=== PATIENT | female | born 1965 | race Caucasian/White ===

== ENCOUNTER 2020-08-18 21:07 | Inpatient (IN) ==
[2020-08-18] MEDS ORDERED: Naloxone 0.4 MG/ML INJ IVP PRN (22:57)
[2020-08-18] MEDS ORDERED: *HR* Dextrose 50 % in Water (Vial) 50 ML VIAL IVP PRN (23:08)
[2020-08-18] MEDS ORDERED: D5% in Water 1,000 ML IVC PRN (23:08)
[2020-08-18] MEDS ORDERED: Dextrose Gel 15 GM/37.5 ML TUBE PO PRN ×2 (23:08)
[2020-08-18] MEDS: *HR* Heparin 5,000 UNIT/ML VIAL SQ SCH (23:49)
[2020-08-19] MEDS ORDERED: Melatonin 3 MG TABLET PO ONE (00:23)
[2020-08-19 00:49] LABS: Basophils % 0.3 %; Hematocrit 37.2 % (35.3-44.9); Hemoglobin 12.6 g/dL (11.5-15.4); Immature Granulocytes % 1.2 % (0-4); Lymphocytes # 0.7 K/mcL (0.6-4.6); Lymphocytes % 21.5 %; Mean Corpuscular HGB Conc 33.9 g/dL (31.6-35.5); Mean Corpuscular Hemoglobin 29.4 pg (28.0-33.3); Mean Corpuscular Volume 86.7 fL (83.0-100.0); Mean Platelet Volume 10.2 fL (9.4-12.4); Monocytes # 0.1 K/mcL (0.0-1.3); Monocytes % 2.8 %; Platelet Count 137 K/mcL (140-400); Red Blood Count 4.29 M/mcL (3.82-4.97); Red Cell Distribution Width 14.8 % (11.5-14.5); Segmented Neutrophils % 74.2 %; White Blood Count 3.3 K/mcL (4.3-11.1)
[2020-08-19 00:55] LABS: INR 1.2; Prothrombin Time 13.3 Seconds (9.4-12.1)
[2020-08-19 00:57] LABS: Activated Partial Thrombo Time 25.8 Seconds (26.0-36.0)
[2020-08-19 00:58] LABS: Neutrophils # 2.5 K/mcL (1.6-8.9)
[2020-08-19 01:10] LABS: Alanine Aminotransferase 23 Units/L (7-52); Albumin 3.6 g/dL (3.5-5.7); Alkaline Phosphatase 75 Units/L (34-104); Aspartate Amino Transferase 29 Units/L (13-39); BUN/Creatinine Ratio 19 (6-26); Bilirubin,Total 0.4 mg/dL (0.3-1.0); Blood Urea Nitrogen 14 mg/dL (6-20); C-Reactive Protein 60 mg/L (Less than 10); Carbon Dioxide 14 mEq/L (23-29); Chloride 96 mEq/L (98-107); Globulin 3.7 g/dL (2.4-3.5); Glucose 376 mg/dL (70-105); Lactate Dehydrogenase 270 Units/L (140-271); Osmolality,Calculated 282 (280-300); Potassium 4.2 mEq/L (3.5-5.1); Sodium 128 mEq/L (136-145); Total Protein 7.3 g/dL (6.4-8.9); Troponin I < 0.03 ng/mL (< 0.04); eGFR For African Americans > 60 (> 60); eGFR For Non-African Americans > 60 (> 60)
[2020-08-19 01:12] LABS: Reactive Lymphocytes Present (Not Present); Toxic Granulation Present (Not Present)
[2020-08-19 01:28] LABS: Ferritin 562 ng/mL (10-120)
[2020-08-19] MEDS ORDERED: Insulin LISPRO 300 UNITS/3 ML VIAL SUBQ SCH ×2 (04:00)
[2020-08-19] MEDS ORDERED: Insulin LISPRO 300 UNITS/3 ML VIAL SUBQ PRN (05:17)
[2020-08-19] MEDS ORDERED: Insulin Human Regular 100 UNIT in 0.9 % Sodium Chloride 100 ML IVC SCH ×2 (05:30→08:45)
[2020-08-19 06:57] LABS: BUN/Creatinine Ratio 18 (6-26); Blood Urea Nitrogen 16 mg/dL (6-20); Calcium 8.4 mg/dL (8.6-10.3); Carbon Dioxide 15 mEq/L (23-29); Chloride 94 mEq/L (98-107); Glucose 355 mg/dL (70-105); Osmolality,Calculated 281 (280-300); Potassium 4.1 mEq/L (3.5-5.1); Sodium 128 mEq/L (136-145); eGFR For African Americans > 60 (> 60); eGFR For Non-African Americans > 60 (> 60)
[2020-08-19] MEDS ORDERED: 0.9 % Sodium Chloride 1,000 ML IVC SCH (08:45)
[2020-08-19] MEDS ORDERED: Insulin Regular, Human 100 UNIT/ML IV PRN ×4 (08:45→09:25)
[2020-08-19] MEDS ORDERED: 0.45 % Sodium Chloride w/KCl 20 MEQ/1,000 ML MLS IVC SCH (08:45)
[2020-08-19] MEDS ORDERED: D5% in 0.45% NACL w KCl 20 MEQ/1,000 ML MLS IVC PRN ×2 (08:45→09:25)
[2020-08-19] MEDS ORDERED: D5% in 0.45% NACL 1,000 ML IVC PRN (08:45)
[2020-08-19 09:03] LABS: VBG HCO3 17 mEq/L (21-27); VBG PCO2 34 mmHg (41-51); VBG PO2 88 mmHg (25-50)
[2020-08-19] MEDS ORDERED: *HR* Dextrose 50 % in Water (Vial) 50 ML VIAL IVP PRN (09:25)
[2020-08-19] MEDS ORDERED: 0.9 % Sodium Chloride w KCl 20 MEQ/1,000 ML MLS IVC SCH (09:30)
[2020-08-19] MEDS: *HR* Heparin 5,000 UNIT/ML VIAL SQ SCH ×2 (09:33→16:05)
[2020-08-19 09:40] LABS: BUN/Creatinine Ratio 20 (6-26); Blood Urea Nitrogen 16 mg/dL (6-20); Calcium 8.7 mg/dL (8.6-10.3); Carbon Dioxide 15 mEq/L (23-29); Chloride 98 mEq/L (98-107); Glucose 259 mg/dL (70-105); Osmolality,Calculated 278 (280-300); Potassium 3.2 mEq/L (3.5-5.1); Sodium 129 mEq/L (136-145); eGFR For African Americans > 60 (> 60); eGFR For Non-African Americans > 60 (> 60)
[2020-08-19] MEDS: Insulin Human Regular 100 UNIT in 0.9 % Sodium Chloride 100 ML IVC SCH ×2 (11:00→16:06)
[2020-08-19 12:27] LABS: VBG HCO3 20 mEq/L (21-27); VBG PCO2 41 mmHg (41-51); VBG PO2 134 mmHg (25-50)
[2020-08-19 13:02] LABS: BUN/Creatinine Ratio 19 (6-26); Blood Urea Nitrogen 16 mg/dL (6-20); Calcium 9.3 mg/dL (8.6-10.3); Carbon Dioxide 14 mEq/L (23-29); Chloride 99 mEq/L (98-107); Glucose 114 mg/dL (70-105); Osmolality,Calculated 272 (280-300); Potassium 3.4 mEq/L (3.5-5.1); Sodium 130 mEq/L (136-145); eGFR For African Americans > 60 (> 60); eGFR For Non-African Americans > 60 (> 60)
[2020-08-19] MEDS ORDERED: 0.9 % Sodium Chloride 500 ML IVC ONE (15:22)
[2020-08-19 16:12] LABS: BUN/Creatinine Ratio 21 (6-26); Blood Urea Nitrogen 15 mg/dL (6-20); Calcium 8.9 mg/dL (8.6-10.3); Carbon Dioxide 18 mEq/L (23-29); Chloride 103 mEq/L (98-107); Glucose 94 mg/dL (70-105); Osmolality,Calculated 275 (280-300); Potassium 3.4 mEq/L (3.5-5.1); Sodium 132 mEq/L (136-145); eGFR For African Americans > 60 (> 60); eGFR For Non-African Americans > 60 (> 60)
[2020-08-19 21:40] LABS: BUN/Creatinine Ratio 22 (6-26); Blood Urea Nitrogen 14 mg/dL (6-20); Calcium 8.1 mg/dL (8.6-10.3); Carbon Dioxide 20 mEq/L (23-29); Chloride 102 mEq/L (98-107); Glucose 225 mg/dL (70-105); Osmolality,Calculated 280 (280-300); Potassium 4.1 mEq/L (3.5-5.1); Sodium 131 mEq/L (136-145); eGFR For African Americans > 60 (> 60); eGFR For Non-African Americans > 60 (> 60)
[2020-08-19] MEDS: Insulin DETEMIR 100 UNIT/ML X5UNITS SUBQ SCH (22:30)
[2020-08-20] MEDS: *HR* Heparin 5,000 UNIT/ML VIAL SQ SCH ×2 (01:00→08:49)
[2020-08-20] MEDS: Insulin LISPRO 300 UNITS/3 ML VIAL SUBQ SCH ×5 (01:49→22:01)
[2020-08-20 02:20] LABS: Hematocrit 35.8 % (35.3-44.9); Mean Corpuscular HGB Conc 33.5 g/dL (31.6-35.5); Mean Corpuscular Hemoglobin 29.5 pg (28.0-33.3); Mean Platelet Volume 10.6 fL (9.4-12.4); Platelet Count 178 K/mcL (140-400); Red Blood Count 4.07 M/mcL (3.82-4.97); Red Cell Distribution Width 14.8 % (11.5-14.5)
[2020-08-20] MEDS ORDERED: ALPRAZolam 0.5 MG TABLET PO PRN (02:20)
[2020-08-20 02:26] LABS: White Blood Count 8.1 K/mcL (4.3-11.1)
[2020-08-20 02:30] LABS: Fibrinogen 439 mg/dL (169-393)
[2020-08-20 02:33] LABS: Alanine Aminotransferase 18 Units/L (7-52); Albumin 3.4 g/dL (3.5-5.7); Alkaline Phosphatase 68 Units/L (34-104); Aspartate Amino Transferase 22 Units/L (13-39); BUN/Creatinine Ratio 22 (6-26); Bilirubin,Direct 0.1 mg/dL (0.0-0.2); Bilirubin,Indirect 0.3 mg/dL (0.0-1.0); Bilirubin,Total 0.4 mg/dL (0.3-1.0); Blood Urea Nitrogen 14 mg/dL (6-20); C-Reactive Protein 29 mg/L (Less than 10); Calcium 8.3 mg/dL (8.6-10.3); Carbon Dioxide 19 mEq/L (23-29); Chloride 103 mEq/L (98-107); Globulin 3.3 g/dL (2.4-3.5); Glucose 201 mg/dL (70-105); Osmolality,Calculated 282 (280-300); Potassium 3.6 mEq/L (3.5-5.1); Sodium 133 mEq/L (136-145); Total Protein 6.7 g/dL (6.4-8.9); eGFR For African Americans > 60 (> 60); eGFR For Non-African Americans > 60 (> 60)
[2020-08-20 02:34] LABS: BUN/Creatinine Ratio 22 (6-26); Blood Urea Nitrogen 14 mg/dL (6-20); Calcium 8.2 mg/dL (8.6-10.3); Carbon Dioxide 19 mEq/L (23-29); Chloride 103 mEq/L (98-107); Glucose 202 mg/dL (70-105); Osmolality,Calculated 282 (280-300); Potassium 3.6 mEq/L (3.5-5.1); Sodium 133 mEq/L (136-145); eGFR For African Americans > 60 (> 60); eGFR For Non-African Americans > 60 (> 60)
[2020-08-20 02:36] LABS: D-Dimer 245 ng/mLFEU (0-500)
[2020-08-20 02:49] LABS: Neutrophils # 7.1 K/mcL (1.6-8.9); Platelet Estimate Normal (Normal)
[2020-08-20] MEDS ORDERED: Ondansetron ODT 4 MG TAB.RAPDIS SL PRN (07:29)
[2020-08-20] MEDS: Metoprolol XL (24 HR) Succ 50 MG TAB.ER.24H PO SCH (08:49)
[2020-08-20] MEDS: amLODIPine 5 MG TABLET PO SCH (08:49)
[2020-08-20] MEDS: Dexamethasone Sodium Phos/PF 10 MG/ML VIAL IVP SCH (08:53)
[2020-08-20] MEDS ORDERED: NON-FORMULARY MEDICATION 1 EACH EACH (Omega-3/Dha/Epa/Fish Oil [Fish Oil 1,000 Mg Softgel] PO SCH (09:00)
[2020-08-20] MEDS ORDERED: Remdesivir 200 MG in 0.9 % Sodium Chloride 100 ML IVPB ONE (16:00)
[2020-08-20 18:05] LABS: BUN/Creatinine Ratio 19 (6-26); Blood Urea Nitrogen 14 mg/dL (6-20); Calcium 8.3 mg/dL (8.6-10.3); Carbon Dioxide 20 mEq/L (23-29); Chloride 103 mEq/L (98-107); Glucose 370 mg/dL (70-105); Osmolality,Calculated 294 (280-300); Potassium 4.1 mEq/L (3.5-5.1); Sodium 134 mEq/L (136-145); eGFR For African Americans > 60 (> 60); eGFR For Non-African Americans > 60 (> 60)
[2020-08-20] MEDS: Insulin DETEMIR 100 UNIT/ML X5UNITS SUBQ SCH (21:44)
[2020-08-21 05:57] LABS: Basophils % 0.2 %; Hematocrit 34.4 % (35.3-44.9); Hemoglobin 11.2 g/dL (11.5-15.4); Immature Granulocytes % 2.5 % (0-4); Mean Corpuscular HGB Conc 32.6 g/dL (31.6-35.5); Mean Corpuscular Hemoglobin 28.4 pg (28.0-33.3); Mean Corpuscular Volume 87.1 fL (83.0-100.0); Mean Platelet Volume 10.3 fL (9.4-12.4); Monocytes # 0.5 K/mcL (0.0-1.3); Monocytes % 4.8 %; Neutrophils # 8.1 K/mcL (1.6-8.9); Platelet Count 216 K/mcL (140-400); Red Blood Count 3.95 M/mcL (3.82-4.97); Red Cell Distribution Width 14.9 % (11.5-14.5); Segmented Neutrophils % 82.5 %; White Blood Count 9.8 K/mcL (4.3-11.1)
[2020-08-21 05:59] LABS: INR 1.1; Prothrombin Time 12.9 Seconds (9.4-12.1)
[2020-08-21] MEDS: *HR* Enoxaparin 40 MG/0.4 ML SYRINGE SQ SCH (06:13)
[2020-08-21 06:16] LABS: BUN/Creatinine Ratio 22 (6-26); Blood Urea Nitrogen 14 mg/dL (6-20); Calcium 8.1 mg/dL (8.6-10.3); Carbon Dioxide 23 mEq/L (23-29); Chloride 104 mEq/L (98-107); Glucose 242 mg/dL (70-105); Osmolality,Calculated 288 (280-300); Potassium 3.8 mEq/L (3.5-5.1); Sodium 135 mEq/L (136-145); eGFR For African Americans > 60 (> 60); eGFR For Non-African Americans > 60 (> 60)
[2020-08-21 06:18] LABS: Alanine Aminotransferase 14 Units/L (7-52); Albumin 3.1 g/dL (3.5-5.7); Alkaline Phosphatase 68 Units/L (34-104); Aspartate Amino Transferase 18 Units/L (13-39); BUN/Creatinine Ratio 22 (6-26); Bilirubin,Total 0.4 mg/dL (0.3-1.0); Blood Urea Nitrogen 14 mg/dL (6-20); Calcium 8.1 mg/dL (8.6-10.3); Carbon Dioxide 23 mEq/L (23-29); Chloride 104 mEq/L (98-107); Globulin 3.2 g/dL (2.4-3.5); Glucose 240 mg/dL (70-105); Osmolality,Calculated 288 (280-300); Potassium 3.9 mEq/L (3.5-5.1); Sodium 135 mEq/L (136-145); Total Protein 6.3 g/dL (6.4-8.9); eGFR For African Americans > 60 (> 60); eGFR For Non-African Americans > 60 (> 60)
[2020-08-21 06:23] LABS: Platelet Estimate Normal (Normal); Reactive Lymphocytes Present (Not Present)
[2020-08-21 08:24] LABS: C-Reactive Protein 13 mg/L (Less than 10)
[2020-08-21] MEDS: Dexamethasone Sodium Phos/PF 10 MG/ML VIAL IVP SCH (09:03)
[2020-08-21] MEDS: amLODIPine 5 MG TABLET PO SCH (09:03)
[2020-08-21] MEDS: Metoprolol XL (24 HR) Succ 50 MG TAB.ER.24H PO SCH (09:03)
[2020-08-21] MEDS: Cholecalciferol (D-3) 1,000 UNIT (25MCG) TABLET PO SCH (09:04)
[2020-08-21] MEDS: Aspirin 81 MG TAB.CHEW PO SCH (09:04)
[2020-08-21] MEDS: Insulin LISPRO 300 UNITS/3 ML VIAL SUBQ SCH ×4 (09:05→20:42)
[2020-08-21] MEDS: Remdesivir 100 MG in 0.9 % Sodium Chloride 100 ML IVPB SCH (16:43)
[2020-08-21] MEDS: Insulin DETEMIR 100 UNIT/ML X5UNITS SUBQ SCH (20:42)
[2020-08-22] MEDS: *HR* Enoxaparin 40 MG/0.4 ML SYRINGE SQ SCH (06:07)
[2020-08-22] MEDS: Cholecalciferol (D-3) 1,000 UNIT (25MCG) TABLET PO SCH (08:38)
[2020-08-22] MEDS: Dexamethasone Sodium Phos/PF 10 MG/ML VIAL IVP SCH (08:38)
[2020-08-22] MEDS: Insulin LISPRO 300 UNITS/3 ML VIAL SUBQ SCH ×4 (08:39→20:17)
[2020-08-22] MEDS: amLODIPine 5 MG TABLET PO SCH (08:39)
[2020-08-22] MEDS: Metoprolol XL (24 HR) Succ 50 MG TAB.ER.24H PO SCH (08:39)
[2020-08-22] MEDS: Aspirin 81 MG TAB.CHEW PO SCH (08:39)
[2020-08-22] MEDS: Remdesivir 100 MG in 0.9 % Sodium Chloride 100 ML IVPB SCH (17:28)
[2020-08-22] MEDS: Insulin DETEMIR 100 UNIT/ML X5UNITS SUBQ SCH (19:45)
[2020-08-22] MEDS: ALPRAZolam 0.5 MG TABLET PO PRN (19:53)
[2020-08-23] LABS: Basophils % 0.6 %; Hematocrit 35.3 % (35.3-44.9); Hemoglobin 11.6 g/dL (11.5-15.4); Immature Granulocytes % 1.7 % (0-4); Lymphocytes % 14.6 %; Mean Corpuscular HGB Conc 32.9 g/dL (31.6-35.5); Mean Corpuscular Hemoglobin 28.9 pg (28.0-33.3); Mean Corpuscular Volume 87.8 fL (83.0-100.0); Mean Platelet Volume 9.7 fL (9.4-12.4); Monocytes # 0.3 K/mcL (0.0-1.3); Monocytes % 4.8 %; Neutrophils # 5.2 K/mcL (1.6-8.9); Platelet Count 225 K/mcL (140-400); Red Blood Count 4.02 M/mcL (3.82-4.97); Red Cell Distribution Width 14.4 % (11.5-14.5); Segmented Neutrophils % 78.3 %; White Blood Count 6.6 K/mcL (4.3-11.1)
[2020-08-23 00:14] LABS: Fibrinogen 326 mg/dL (169-393)
[2020-08-23 00:15] LABS: INR 1.2
[2020-08-23 00:20] LABS: BUN/Creatinine Ratio 27 (6-26); Blood Urea Nitrogen 17 mg/dL (6-20); C-Reactive Protein < 5 mg/L (Less than 10); Calcium 8.4 mg/dL (8.6-10.3); Carbon Dioxide 20 mEq/L (23-29); Chloride 101 mEq/L (98-107); Glucose 247 mg/dL (70-105); Osmolality,Calculated 284 (280-300); Potassium 3.4 mEq/L (3.5-5.1); Sodium 132 mEq/L (136-145); eGFR For African Americans > 60 (> 60); eGFR For Non-African Americans > 60 (> 60)
[2020-08-23 00:22] LABS: Alanine Aminotransferase 16 Units/L (7-52); Albumin 3.1 g/dL (3.5-5.7); Alkaline Phosphatase 71 Units/L (34-104); Aspartate Amino Transferase 15 Units/L (13-39); BUN/Creatinine Ratio 27 (6-26); Bilirubin,Total 0.4 mg/dL (0.3-1.0); Blood Urea Nitrogen 17 mg/dL (6-20); Calcium 8.4 mg/dL (8.6-10.3); Carbon Dioxide 21 mEq/L (23-29); Chloride 101 mEq/L (98-107); Globulin 3.1 g/dL (2.4-3.5); Glucose 247 mg/dL (70-105); Osmolality,Calculated 286 (280-300); Potassium 3.4 mEq/L (3.5-5.1); Sodium 133 mEq/L (136-145); Total Protein 6.2 g/dL (6.4-8.9); eGFR For African Americans > 60 (> 60); eGFR For Non-African Americans > 60 (> 60)
[2020-08-23 00:24] LABS: D-Dimer 272 ng/mLFEU (0-500)
[2020-08-23 00:39] LABS: Platelet Estimate Normal (Normal); Toxic Granulation Present (Not Present)
[2020-08-23 00:40] LABS: Reactive Lymphocytes Present (Not Present)
[2020-08-23] MEDS: *HR* Enoxaparin 40 MG/0.4 ML SYRINGE SQ SCH (05:11)
[2020-08-23] MEDS: Insulin LISPRO 300 UNITS/3 ML VIAL SUBQ SCH ×4 (08:52→19:26)
[2020-08-23] MEDS: Metoprolol XL (24 HR) Succ 50 MG TAB.ER.24H PO SCH (08:53)
[2020-08-23] MEDS: Aspirin 81 MG TAB.CHEW PO SCH (08:53)
[2020-08-23] MEDS: Dexamethasone Sodium Phos/PF 10 MG/ML VIAL IVP SCH (08:54)
[2020-08-23] MEDS: amLODIPine 5 MG TABLET PO SCH (08:54)
[2020-08-23] MEDS: Cholecalciferol (D-3) 1,000 UNIT (25MCG) TABLET PO SCH (08:54)
[2020-08-23] MEDS: Remdesivir 100 MG in 0.9 % Sodium Chloride 100 ML IVPB SCH (15:07)
[2020-08-23] MEDS ORDERED: Furosemide 40 MG/4 ML VIAL IVP ONE (15:24)
[2020-08-23] MEDS: Insulin DETEMIR 100 UNIT/ML X5UNITS SUBQ SCH (19:26)
[2020-08-23] MEDS: ALPRAZolam 0.5 MG TABLET PO PRN (21:25)
[2020-08-24 04:36] LABS: Basophils % 0.6 %; Eosinophils % 0.2 %; Hematocrit 36.6 % (35.3-44.9); Hemoglobin 12.1 g/dL (11.5-15.4); Immature Granulocytes % 2.4 % (0-4); Lymphocytes # 1.3 K/mcL (0.6-4.6); Lymphocytes % 23.8 %; Mean Corpuscular HGB Conc 33.1 g/dL (31.6-35.5); Mean Corpuscular Hemoglobin 28.6 pg (28.0-33.3); Mean Corpuscular Volume 86.5 fL (83.0-100.0); Mean Platelet Volume 9.4 fL (9.4-12.4); Monocytes # 0.4 K/mcL (0.0-1.3); Monocytes % 7.8 %; Neutrophils # 3.5 K/mcL (1.6-8.9); Platelet Count 224 K/mcL (140-400); Red Blood Count 4.23 M/mcL (3.82-4.97); Red Cell Distribution Width 14.3 % (11.5-14.5); Segmented Neutrophils % 65.2 %; White Blood Count 5.4 K/mcL (4.3-11.1)
[2020-08-24 04:41] LABS: Fibrinogen 341 mg/dL (169-393)
[2020-08-24 04:42] LABS: INR 1.2; Prothrombin Time 13.7 Seconds (9.4-12.1)
[2020-08-24 04:45] LABS: D-Dimer 269 ng/mLFEU (0-500)
[2020-08-24 04:55] LABS: Alanine Aminotransferase 17 Units/L (7-52); Albumin 3.2 g/dL (3.5-5.7); Alkaline Phosphatase 70 Units/L (34-104); Aspartate Amino Transferase 17 Units/L (13-39); BUN/Creatinine Ratio 32 (6-26); Bilirubin,Total 0.4 mg/dL (0.3-1.0); Blood Urea Nitrogen 21 mg/dL (6-20); Calcium 8.2 mg/dL (8.6-10.3); Carbon Dioxide 22 mEq/L (23-29); Chloride 99 mEq/L (98-107); Globulin 3.1 g/dL (2.4-3.5); Glucose 207 mg/dL (70-105); Osmolality,Calculated 283 (280-300); Potassium 3.7 mEq/L (3.5-5.1); Sodium 132 mEq/L (136-145); Total Protein 6.3 g/dL (6.4-8.9); eGFR For African Americans > 60 (> 60); eGFR For Non-African Americans > 60 (> 60)
[2020-08-24 04:56] LABS: BUN/Creatinine Ratio 33 (6-26); Blood Urea Nitrogen 21 mg/dL (6-20); C-Reactive Protein 9 mg/L (Less than 10); Calcium 8.2 mg/dL (8.6-10.3); Carbon Dioxide 22 mEq/L (23-29); Chloride 100 mEq/L (98-107); Glucose 208 mg/dL (70-105); Osmolality,Calculated 285 (280-300); Potassium 3.8 mEq/L (3.5-5.1); Sodium 133 mEq/L (136-145); eGFR For African Americans > 60 (> 60); eGFR For Non-African Americans > 60 (> 60)
[2020-08-24] MEDS: *HR* Enoxaparin 40 MG/0.4 ML SYRINGE SQ SCH (05:05)
[2020-08-24 06:00] LABS: Estimated Average Glucose 381 mg/dl; Hemoglobin A1C 14.9 %
[2020-08-24] MEDS ORDERED: Insulin DETEMIR 100 UNIT/ML X5UNITS SUBQ ONE (07:37)
[2020-08-24] MEDS: Metoprolol XL (24 HR) Succ 50 MG TAB.ER.24H PO SCH (09:19)
[2020-08-24] MEDS: Cholecalciferol (D-3) 1,000 UNIT (25MCG) TABLET PO SCH (09:20)
[2020-08-24] MEDS: Dexamethasone Sodium Phos/PF 10 MG/ML VIAL IVP SCH (09:20)
[2020-08-24] MEDS: Aspirin 81 MG TAB.CHEW PO SCH (09:20)
[2020-08-24] MEDS: amLODIPine 5 MG TABLET PO SCH (09:20)
[2020-08-24] MEDS: Insulin LISPRO 300 UNITS/3 ML VIAL SUBQ SCH ×4 (09:21→21:16)
[2020-08-24] MEDS: Acetaminophen 325 MG TABLET PO PRN ×2 (09:23→19:58)
[2020-08-24] MEDS ORDERED: Sennosides/Docusate Sodium TABLET PO ONE (13:19)
[2020-08-24] MEDS: Remdesivir 100 MG in 0.9 % Sodium Chloride 100 ML IVPB SCH (16:08)
[2020-08-24] MEDS: ALPRAZolam 0.5 MG TABLET PO PRN (19:58)
[2020-08-24] MEDS: Insulin DETEMIR 100 UNIT/ML X5UNITS SUBQ SCH (21:17)
[2020-08-25 04:21] LABS: Basophils % 0.4 %; Eosinophils % 0.4 %; Hematocrit 36.8 % (35.3-44.9); Hemoglobin 12.2 g/dL (11.5-15.4); Immature Granulocytes % 3.8 % (0-4); Lymphocytes # 1.1 K/mcL (0.6-4.6); Mean Corpuscular HGB Conc 33.2 g/dL (31.6-35.5); Mean Corpuscular Hemoglobin 29.4 pg (28.0-33.3); Mean Corpuscular Volume 88.7 fL (83.0-100.0); Mean Platelet Volume 9.8 fL (9.4-12.4); Monocytes # 0.5 K/mcL (0.0-1.3); Monocytes % 8.8 %; Neutrophils # 3.5 K/mcL (1.6-8.9); Platelet Count 209 K/mcL (140-400); Red Blood Count 4.15 M/mcL (3.82-4.97); Red Cell Distribution Width 14.4 % (11.5-14.5); Segmented Neutrophils % 65.6 %; White Blood Count 5.3 K/mcL (4.3-11.1)
[2020-08-25 04:30] LABS: INR 1.1; Prothrombin Time 13.1 Seconds (9.4-12.1)
[2020-08-25 04:40] LABS: Alanine Aminotransferase 17 Units/L (7-52); Albumin 3.1 g/dL (3.5-5.7); Alkaline Phosphatase 66 Units/L (34-104); Aspartate Amino Transferase 15 Units/L (13-39); BUN/Creatinine Ratio 29 (6-26); Bilirubin,Total 0.4 mg/dL (0.3-1.0); Blood Urea Nitrogen 21 mg/dL (6-20); C-Reactive Protein 9 mg/L (Less than 10); Calcium 8.4 mg/dL (8.6-10.3); Carbon Dioxide 23 mEq/L (23-29); Chloride 100 mEq/L (98-107); Globulin 3.1 g/dL (2.4-3.5); Glucose 231 mg/dL (70-105); Osmolality,Calculated 284 (280-300); Potassium 4.4 mEq/L (3.5-5.1); Sodium 132 mEq/L (136-145); Total Protein 6.2 g/dL (6.4-8.9); eGFR For African Americans > 60 (> 60); eGFR For Non-African Americans > 60 (> 60)
[2020-08-25] MEDS: *HR* Enoxaparin 40 MG/0.4 ML SYRINGE SQ SCH (05:20)
[2020-08-25] MEDS: Acetaminophen 325 MG TABLET PO PRN (05:20)
[2020-08-25] MEDS: amLODIPine 5 MG TABLET PO SCH (08:09)
[2020-08-25] MEDS: Cholecalciferol (D-3) 1,000 UNIT (25MCG) TABLET PO SCH (08:09)
[2020-08-25] MEDS: Metoprolol XL (24 HR) Succ 50 MG TAB.ER.24H PO SCH (08:09)
[2020-08-25] MEDS: Aspirin 81 MG TAB.CHEW PO SCH (08:10)
[2020-08-25] MEDS: Dexamethasone Sodium Phos/PF 10 MG/ML VIAL IVP SCH (08:10)
[2020-08-25] MEDS: Sennosides/Docusate Sodium TABLET PO SCH (08:10)
[2020-08-25] MEDS: Insulin LISPRO 300 UNITS/3 ML VIAL SUBQ SCH ×5 (08:10→20:12)
[2020-08-25] MEDS: ALPRAZolam 0.5 MG TABLET PO PRN (19:35)
[2020-08-25] MEDS: Insulin DETEMIR 100 UNIT/ML X5UNITS SUBQ SCH (20:12)
[2020-08-26] MEDS: *HR* Enoxaparin 40 MG/0.4 ML SYRINGE SQ SCH (04:48)
[2020-08-26] MEDS: Insulin LISPRO 300 UNITS/3 ML VIAL SUBQ SCH ×4 (08:43→21:24)
[2020-08-26] MEDS: Dexamethasone Sodium Phos/PF 10 MG/ML VIAL IVP SCH (09:37)
[2020-08-26] MEDS: Cholecalciferol (D-3) 1,000 UNIT (25MCG) TABLET PO SCH (09:38)
[2020-08-26] MEDS: Metoprolol XL (24 HR) Succ 50 MG TAB.ER.24H PO SCH (09:38)
[2020-08-26] MEDS: amLODIPine 5 MG TABLET PO SCH (09:39)
[2020-08-26] MEDS: Sennosides/Docusate Sodium TABLET PO SCH (09:39)
[2020-08-26] MEDS: Aspirin 81 MG TAB.CHEW PO SCH (09:39)
[2020-08-26] MEDS: ALPRAZolam 0.5 MG TABLET PO PRN (19:12)
[2020-08-26] MEDS: Insulin DETEMIR 100 UNIT/ML X5UNITS SUBQ SCH (21:24)
[2020-08-27] MEDS: *HR* Enoxaparin 40 MG/0.4 ML SYRINGE SQ SCH (05:04)
[2020-08-27] MEDS: Insulin LISPRO 300 UNITS/3 ML VIAL SUBQ SCH ×6 (07:59→20:20)
[2020-08-27] MEDS: Cholecalciferol (D-3) 1,000 UNIT (25MCG) TABLET PO SCH (08:00)
[2020-08-27] MEDS: Aspirin 81 MG TAB.CHEW PO SCH (08:00)
[2020-08-27] MEDS: Dexamethasone Sodium Phos/PF 10 MG/ML VIAL IVP SCH (08:01)
[2020-08-27] MEDS: amLODIPine 5 MG TABLET PO SCH (08:01)
[2020-08-27] MEDS: Sennosides/Docusate Sodium TABLET PO SCH (08:01)
[2020-08-27] MEDS: Metoprolol XL (24 HR) Succ 50 MG TAB.ER.24H PO SCH (08:01)
[2020-08-27] MEDS: Insulin DETEMIR 100 UNIT/ML X5UNITS SUBQ SCH ×2 (12:25→20:21)
[2020-08-27] MEDS: ALPRAZolam 0.5 MG TABLET PO PRN (20:26)
[2020-08-28] MEDS: *HR* Enoxaparin 40 MG/0.4 ML SYRINGE SQ SCH (05:25)
[2020-08-28 07:16] LABS: Alanine Aminotransferase 15 Units/L (7-52); Albumin 3.3 g/dL (3.5-5.7); Albumin/Globulin Ratio 1.1 (1.1-2.2); Alkaline Phosphatase 72 Units/L (34-104); Aspartate Amino Transferase 13 Units/L (13-39); BUN/Creatinine Ratio 33 (6-26); Bilirubin,Total 0.3 mg/dL (0.3-1.0); Blood Urea Nitrogen 26 mg/dL (6-20); Calcium 8.7 mg/dL (8.6-10.3); Carbon Dioxide 20 mEq/L (23-29); Chloride 100 mEq/L (98-107); Globulin 3.1 g/dL (2.4-3.5); Glucose 190 mg/dL (70-105); Magnesium 1.8 mg/dL (1.6-2.6); Osmolality,Calculated 282 (280-300); Phosphorous 3.5 mg/dL (2.7-4.5); Potassium 3.8 mEq/L (3.5-5.1); Sodium 131 mEq/L (136-145); Total Protein 6.4 g/dL (6.4-8.9); eGFR For African Americans > 60 (> 60); eGFR For Non-African Americans > 60 (> 60)
[2020-08-28] MEDS: Sennosides/Docusate Sodium TABLET PO SCH (08:06)
[2020-08-28] MEDS: Insulin DETEMIR 100 UNIT/ML X5UNITS SUBQ SCH ×2 (08:06→21:30)
[2020-08-28] MEDS: Cholecalciferol (D-3) 1,000 UNIT (25MCG) TABLET PO SCH (08:06)
[2020-08-28] MEDS: Metoprolol XL (24 HR) Succ 50 MG TAB.ER.24H PO SCH (08:06)
[2020-08-28] MEDS: Aspirin 81 MG TAB.CHEW PO SCH (08:07)
[2020-08-28] MEDS: amLODIPine 5 MG TABLET PO SCH (08:07)
[2020-08-28] MEDS: Furosemide 20 MG/2 ML VIAL IVP SCH (08:08)
[2020-08-28] MEDS: Insulin LISPRO 300 UNITS/3 ML VIAL SUBQ SCH ×7 (08:08→21:30)
[2020-08-28] MEDS: Dexamethasone Sodium Phos/PF 10 MG/ML VIAL IVP SCH (08:08)
[2020-08-28] MEDS: ALPRAZolam 0.5 MG TABLET PO PRN (21:30)
[2020-08-29] MEDS: *HR* Enoxaparin 40 MG/0.4 ML SYRINGE SQ SCH (05:24)
[2020-08-29 07:49] LABS: Basophils % 0.3 %; Eosinophils % 0.2 %; Hematocrit 38.8 % (35.3-44.9); Hemoglobin 12.8 g/dL (11.5-15.4); Immature Granulocytes % 2.3 % (0-4); Lymphocytes # 1.3 K/mcL (0.6-4.6); Lymphocytes % 13.9 %; Mean Corpuscular Hemoglobin 29.1 pg (28.0-33.3); Mean Corpuscular Volume 88.2 fL (83.0-100.0); Mean Platelet Volume 10.7 fL (9.4-12.4); Monocytes # 0.4 K/mcL (0.0-1.3); Monocytes % 3.9 %; Neutrophils # 7.2 K/mcL (1.6-8.9); Platelet Count 169 K/mcL (140-400); Red Cell Distribution Width 14.8 % (11.5-14.5); Segmented Neutrophils % 79.4 %
[2020-08-29 07:55] LABS: White Blood Count 9.1 K/mcL (4.3-11.1)
[2020-08-29 08:03] LABS: Fibrinogen 458 mg/dL (169-393)
[2020-08-29 08:04] LABS: D-Dimer < 215 ng/mLFEU (0-500)
[2020-08-29 08:06] LABS: Alanine Aminotransferase 16 Units/L (7-52); Albumin 3.6 g/dL (3.5-5.7); Albumin/Globulin Ratio 1.1 (1.1-2.2); Alkaline Phosphatase 73 Units/L (34-104); Aspartate Amino Transferase 10 Units/L (13-39); BUN/Creatinine Ratio 32 (6-26); Bilirubin,Total 0.3 mg/dL (0.3-1.0); Blood Urea Nitrogen 25 mg/dL (6-20); Carbon Dioxide 25 mEq/L (23-29); Chloride 97 mEq/L (98-107); Globulin 3.4 g/dL (2.4-3.5); Glucose 262 mg/dL (70-105); Lactate Dehydrogenase 277 Units/L (140-271); Magnesium 1.8 mg/dL (1.6-2.6); Osmolality,Calculated 285 (280-300); Phosphorous 3.3 mg/dL (2.7-4.5); Potassium 4.5 mEq/L (3.5-5.1); Sodium 131 mEq/L (136-145); eGFR For African Americans > 60 (> 60); eGFR For Non-African Americans > 60 (> 60)
[2020-08-29 08:23] LABS: Ferritin 431 ng/mL (10-120)
[2020-08-29] MEDS: Cholecalciferol (D-3) 1,000 UNIT (25MCG) TABLET PO SCH (09:20)
[2020-08-29] MEDS: Aspirin 81 MG TAB.CHEW PO SCH (09:21)
[2020-08-29] MEDS: amLODIPine 5 MG TABLET PO SCH (09:21)
[2020-08-29] MEDS: Dexamethasone Sodium Phos/PF 10 MG/ML VIAL IVP SCH (09:21)
[2020-08-29] MEDS: Metoprolol XL (24 HR) Succ 50 MG TAB.ER.24H PO SCH (09:21)
[2020-08-29] MEDS: Sennosides/Docusate Sodium TABLET PO SCH (09:21)
[2020-08-29] MEDS: Furosemide 20 MG/2 ML VIAL IVP SCH (09:22)
[2020-08-29] MEDS: Insulin DETEMIR 100 UNIT/ML X5UNITS SUBQ SCH ×2 (09:24→20:32)
[2020-08-29] MEDS: Insulin LISPRO 300 UNITS/3 ML VIAL SUBQ SCH ×7 (09:24→20:33)
[2020-08-29] MEDS: ALPRAZolam 0.5 MG TABLET PO PRN (20:31)
[2020-08-30 03:05] LABS: BUN/Creatinine Ratio 39 (6-26); Blood Urea Nitrogen 27 mg/dL (6-20); Calcium 8.6 mg/dL (8.6-10.3); Carbon Dioxide 22 mEq/L (23-29); Chloride 98 mEq/L (98-107); Glucose 283 mg/dL (70-105); Magnesium 1.9 mg/dL (1.6-2.6); Osmolality,Calculated 285 (280-300); Potassium 3.9 mEq/L (3.5-5.1); Sodium 130 mEq/L (136-145); eGFR For African Americans > 60 (> 60); eGFR For Non-African Americans > 60 (> 60)
[2020-08-30] MEDS: *HR* Enoxaparin 40 MG/0.4 ML SYRINGE SQ SCH (05:02)
[2020-08-30] MEDS: Sennosides/Docusate Sodium TABLET PO SCH (07:51)
[2020-08-30] MEDS: Cholecalciferol (D-3) 1,000 UNIT (25MCG) TABLET PO SCH (07:52)
[2020-08-30] MEDS: amLODIPine 5 MG TABLET PO SCH (07:52)
[2020-08-30] MEDS: Aspirin 81 MG TAB.CHEW PO SCH (07:52)
[2020-08-30] MEDS: Metoprolol XL (24 HR) Succ 50 MG TAB.ER.24H PO SCH (07:52)
[2020-08-30] MEDS: Furosemide 20 MG/2 ML VIAL IVP SCH (07:52)
[2020-08-30] MEDS: Insulin DETEMIR 100 UNIT/ML X5UNITS SUBQ SCH (07:52)
[2020-08-30] MEDS: Dexamethasone Sodium Phos/PF 10 MG/ML VIAL IVP SCH (07:52)
[2020-08-30] MEDS: Insulin LISPRO 300 UNITS/3 ML VIAL SUBQ SCH ×4 (07:54→11:22)
[2020-08-30] MEDS ORDERED: Insulin DETEMIR 100 UNIT/ML X5UNITS SUBQ SCH (09:00)
[2020-08-30 11:21] VITALS: BP 124/78
== END 2020-08-30 15:28 | disposition home health service (06) | DRG 137 ==
LOC: 2NENU → SUATTDRO 22:22 → OBSVTOIN 22:22
PROVIDERS: ADMIT Student in an Organized Health Care Education/Training Program; ATTEND Internal Medicine

== ENCOUNTER 2020-12-26 21:53 | Inpatient (IN) ==
[2020-12-26] MEDS ORDERED: Naloxone 0.4 MG/ML INJ IVP PRN (22:45)
[2020-12-26] MEDS ORDERED: Dextrose Gel 15 GM/37.5 ML TUBE PO PRN ×2 (22:47)
[2020-12-26] MEDS ORDERED: D5% in Water 1,000 ML IVC PRN (22:47)
[2020-12-26] MEDS ORDERED: *HR* Dextrose 50 % in Water (Vial) 50 ML VIAL IVP PRN (22:47)
[2020-12-26] MEDS ORDERED: Perflutren Lipid Microsphere 1.3 ML in 0.9 % Sodium Chloride 8.7 ML IVP PRN (22:49)
[2020-12-26] MEDS: Insulin LISPRO 300 UNITS/3 ML VIAL SUBQ SCH (23:36)
[2020-12-26] MEDS ORDERED: *HR* Heparin 5,000 UNIT/ML VIAL IVP PRN ×2 (23:40)
[2020-12-26] MEDS ORDERED: *HR* Heparin 5,000 UNIT/ML VIAL IVP ONE (23:40)
[2020-12-26 23:47] LABS: Bilirubin,Urine Negative (Negative); Blood,Urine Negative (Negative); Clarity,Urine Clear (Clear); Color,Urine Light-Yellow (Yellow); Glucose,Urine (UA) >=1000 mg/dL (Normal); Ketones,Urine Negative (Negative); Leukocyte Esterase,Urine Negative (Negative); Mucus,Urine Few per lpf (None-Few); Nitrite,Urine Negative (Negative); Protein,Urine 30 mg/dL (Neg-Trace); RBC,Urine 0-3 per hpf (0-3); Specific Gravity,Urine > 1.030 (1.010-1.025); Squamous Epithelial Cell,Urine Few per hpf (None-Few); Urobilinogen,Urine Normal (Normal); WBC,Urine 0-3 per hpf (0-3)
[2020-12-27] MEDS: Heparin 25,000UNIT/250ML 1/2NS 25,000 UNIT/250 ML IV.SOLN IVC SCH (00:44)
[2020-12-27 05:30] LABS: Eosinophils % 0.3 %; Hematocrit 38.4 % (35.3-44.9); Hemoglobin 12.9 g/dL (11.5-15.4); Immature Granulocytes % 0.3 % (0-4); Lymphocytes % 32.9 %; Mean Corpuscular HGB Conc 33.6 g/dL (31.6-35.5); Mean Corpuscular Hemoglobin 29.7 pg (28.0-33.3); Mean Corpuscular Volume 88.5 fL (83.0-100.0); Mean Platelet Volume 9.7 fL (9.4-12.4); Monocytes % 5.6 %; Platelet Count 167 K/mcL (140-400); Red Blood Count 4.34 M/mcL (3.82-4.97); Red Cell Distribution Width 13.4 % (11.5-14.5); Segmented Neutrophils % 60.2 %; White Blood Count 7.2 K/mcL (4.3-11.1)
[2020-12-27 05:31] LABS: Basophils # 0.1 K/mcL (0.0-0.2); Basophils % 0.7 %; Lymphocytes # 2.4 K/mcL (0.6-4.6); Monocytes # 0.4 K/mcL (0.0-1.3); Neutrophils # 4.3 K/mcL (1.6-8.9)
[2020-12-27 05:42] LABS: Prothrombin Time 11.8 Seconds (9.4-12.1)
[2020-12-27 05:53] LABS: BUN/Creatinine Ratio 12 (6-26); Blood Urea Nitrogen 9 mg/dL (6-20); Carbon Dioxide 25 mEq/L (23-29); Chloride 102 mEq/L (98-107); Sodium 136 mEq/L (136-145); eGFR For African Americans > 60 (> 60)
[2020-12-27 05:54] LABS: Calcium 9.5 mg/dL (8.6-10.3); Glucose 224 mg/dL (70-105); Magnesium 1.9 mg/dL (1.6-2.6); Osmolality,Calculated 288 (280-300); eGFR For Non-African Americans > 60 (> 60)
[2020-12-27 06:06] LABS: Thyroid Stimulating Hormone 1.471 mcIU/mL (0.340-5.600)
[2020-12-27] MEDS ORDERED: Nitroglycerin 0.4 MG TAB.SUBL SL PRN (07:28)
[2020-12-27] MEDS: Insulin LISPRO 300 UNITS/3 ML VIAL SUBQ SCH ×4 (07:56→21:19)
[2020-12-27] MEDS: Acetaminophen 325 MG TABLET PO PRN (12:42)
[2020-12-27] MEDS: Aspirin Enteric Coated 81 MG Tablet PO SCH (12:42)
[2020-12-27] MEDS: Metoprolol XL (24 HR) Succ 25 MG TAB.ER.24H PO SCH (14:25)
[2020-12-27] MEDS: lisinopriL 5 MG TABLET PO SCH (14:25)
[2020-12-27] MEDS ORDERED: *HR* Heparin 10,000 UNIT/10 ML VIAL ONE (14:53)
[2020-12-27] MEDS ORDERED: Heparin 1,000 UNITS/500 mL 500 ML ONE (14:53)
[2020-12-27] MEDS ORDERED: Nitroglycerin 1,000 MCG/5 ML VIAL IV ONE (14:53)
[2020-12-27] MEDS ORDERED: ISOVUE-370 200 ML INFUS..BTL ONE ×2 (14:53→16:03)
[2020-12-27] MEDS ORDERED: 0.9 % Sodium Chloride 1,000 ML ONE (14:53)
[2020-12-27] MEDS ORDERED: *HR* Midazolam HCl 2 MG/2 ML VIAL ONE (15:01)
[2020-12-27] MEDS ORDERED: *HR* FentaNYL (PF) 100 MCG/2 ML VIAL ONE (15:01)
[2020-12-27] MEDS ORDERED: Ipratropium/Albuterol Neb 3 ML IH PRN (15:57)
[2020-12-27] MEDS ORDERED: *HR* Ticagrelor 90 MG TABLET ONE (16:02)
[2020-12-27] MEDS: Ondansetron 4 MG/2 ML VIAL IVP PRN (17:39)
[2020-12-27] MEDS ORDERED: Saline Nasal Spray 44 ML BOTTLE NS PRN (18:24)
[2020-12-27] MEDS ORDERED: *HR* Promethazine 25 MG/ML VIAL IM ONE (19:07)
[2020-12-27] MEDS ORDERED: *HR* Metoprolol 5 MG/5 ML VIAL IVP PRN (19:10)
[2020-12-27] MEDS ORDERED: Prochlorperazine 10 MG/2 ML VIAL IVP ONE (20:30)
[2020-12-27] MEDS ORDERED: *HR* LORazepam 2 MG/ML VIAL IVP ONE (20:31)
[2020-12-27] MEDS: *HR* Ticagrelor 90 MG TABLET PO SCH (21:08)
[2020-12-28 05:51] LABS: Basophils % 0.6 %; Eosinophils # 0.1 K/mcL (0.0-0.6); Immature Granulocytes % 0.1 % (0-4); Lymphocytes # 2.6 K/mcL (0.6-4.6); Lymphocytes % 36.7 %; Mean Corpuscular HGB Conc 33.3 g/dL (31.6-35.5); Mean Corpuscular Hemoglobin 29.5 pg (28.0-33.3); Mean Corpuscular Volume 88.6 fL (83.0-100.0); Mean Platelet Volume 9.8 fL (9.4-12.4); Monocytes # 0.4 K/mcL (0.0-1.3); Monocytes % 6.1 %; Neutrophils # 3.9 K/mcL (1.6-8.9); Platelet Count 174 K/mcL (140-400); Red Blood Count 4.74 M/mcL (3.82-4.97); Red Cell Distribution Width 13.8 % (11.5-14.5); Segmented Neutrophils % 55.5 %
[2020-12-28 06:10] LABS: BUN/Creatinine Ratio 11 (6-26); Blood Urea Nitrogen 8 mg/dL (6-20); Calcium 9.3 mg/dL (8.6-10.3); Carbon Dioxide 22 mEq/L (23-29); Chloride 102 mEq/L (98-107); Glucose 155 mg/dL (70-105); Osmolality,Calculated 281 (280-300); Potassium 3.4 mEq/L (3.5-5.1); Sodium 135 mEq/L (136-145); eGFR For African Americans > 60 (> 60); eGFR For Non-African Americans > 60 (> 60)
[2020-12-28 07:25] LABS: Estimated Average Glucose 232 mg/dl; Hemoglobin A1C 9.7 %
[2020-12-28] MEDS: Aspirin Enteric Coated 81 MG Tablet PO SCH (08:40)
[2020-12-28] MEDS: amLODIPine 5 MG TABLET PO SCH (08:42)
[2020-12-28] MEDS: lisinopriL 5 MG TABLET PO SCH (08:42)
[2020-12-28] MEDS: Metoprolol XL (24 HR) Succ 25 MG TAB.ER.24H PO SCH (08:43)
[2020-12-28] MEDS: *HR* Ticagrelor 90 MG TABLET PO SCH ×2 (08:43→21:41)
[2020-12-28] MEDS ORDERED: Aspirin 81 MG TAB.CHEW PO SCH (09:00)
[2020-12-28] MEDS ORDERED: Metoprolol XL (24 HR) Succ 25 MG TAB.ER.24H PO ONE (11:13)
[2020-12-28] MEDS: Ondansetron 4 MG/2 ML VIAL IVP PRN ×2 (11:28→21:41)
[2020-12-28] MEDS: Insulin LISPRO 300 UNITS/3 ML VIAL SUBQ SCH ×4 (11:41→21:41)
[2020-12-28] MEDS: Heparin 25,000UNIT/250ML 1/2NS 25,000 UNIT/250 ML IV.SOLN IVC SCH (15:49)
[2020-12-28] MEDS: Acetaminophen 325 MG TABLET PO PRN (21:41)
[2020-12-28] MEDS: ALPRAZolam 0.5 MG TABLET PO PRN (21:42)
[2020-12-29 04:49] LABS: Basophils # 0.1 K/mcL (0.0-0.2); Eosinophils # 0.2 K/mcL (0.0-0.6); Eosinophils % 3.9 %; Hematocrit 40.5 % (35.3-44.9); Hemoglobin 13.2 g/dL (11.5-15.4); Immature Granulocytes % 0.2 % (0-4); Lymphocytes # 2.5 K/mcL (0.6-4.6); Lymphocytes % 49.1 %; Mean Corpuscular HGB Conc 32.6 g/dL (31.6-35.5); Mean Corpuscular Hemoglobin 29.3 pg (28.0-33.3); Monocytes # 0.3 K/mcL (0.0-1.3); Monocytes % 5.6 %; Neutrophils # 2.1 K/mcL (1.6-8.9); Platelet Count 146 K/mcL (140-400); Red Cell Distribution Width 13.8 % (11.5-14.5); Segmented Neutrophils % 40.2 %; White Blood Count 5.2 K/mcL (4.3-11.1)
[2020-12-29 05:03] LABS: BUN/Creatinine Ratio 18 (6-26); Blood Urea Nitrogen 14 mg/dL (6-20); Calcium 9.1 mg/dL (8.6-10.3); Carbon Dioxide 21 mEq/L (23-29); Chloride 104 mEq/L (98-107); Glucose 160 mg/dL (70-105); Magnesium 1.8 mg/dL (1.6-2.6); Osmolality,Calculated 284 (280-300); Potassium 3.9 mEq/L (3.5-5.1); Sodium 135 mEq/L (136-145); eGFR For African Americans > 60 (> 60); eGFR For Non-African Americans > 60 (> 60)
[2020-12-29] MEDS: Metoprolol XL (24 HR) Succ 50 MG TAB.ER.24H PO SCH (07:42)
[2020-12-29] MEDS: amLODIPine 5 MG TABLET PO SCH (07:42)
[2020-12-29] MEDS: Aspirin Enteric Coated 81 MG Tablet PO SCH (07:42)
[2020-12-29] MEDS: lisinopriL 5 MG TABLET PO SCH (07:42)
[2020-12-29] MEDS: *HR* Ticagrelor 90 MG TABLET PO SCH ×2 (07:43→21:00)
[2020-12-29] MEDS: Ondansetron 4 MG/2 ML VIAL IVP PRN (09:35)
[2020-12-29] MEDS: Insulin LISPRO 300 UNITS/3 ML VIAL SUBQ SCH ×4 (10:17→20:57)
[2020-12-29] MEDS ORDERED: Heparin 1,000 UNITS/500 mL 500 ML ONE (12:14)
[2020-12-29] MEDS ORDERED: Nitroglycerin 1,000 MCG/5 ML VIAL IV ONE (12:14)
[2020-12-29] MEDS ORDERED: *HR* Heparin 10,000 UNIT/10 ML VIAL ONE (12:14)
[2020-12-29] MEDS ORDERED: ISOVUE-370 200 ML INFUS..BTL ONE (12:14)
[2020-12-29] MEDS ORDERED: 0.9 % Sodium Chloride 2,000 ML ONE (12:14)
[2020-12-29] MEDS ORDERED: *HR* Midazolam HCl 2 MG/2 ML VIAL ONE ×2 (13:07→14:17)
[2020-12-29] MEDS ORDERED: *HR* FentaNYL (PF) 100 MCG/2 ML VIAL ONE (13:07)
[2020-12-29] MEDS ORDERED: Ondansetron 4 MG/2 ML VIAL ONE (13:13)
[2020-12-29] MEDS ORDERED: Tirofiban 12.5 MG/250ML 12.5 MG/250 ML BAG ONE (13:23)
[2020-12-29] MEDS ORDERED: Tirofiban 12.5 MG/250ML 12.5 MG/250 ML BAG IVC SCH (14:30)
[2020-12-29] MEDS: Acetaminophen 325 MG TABLET PO PRN (21:01)
[2020-12-29] MEDS: ALPRAZolam 0.5 MG TABLET PO PRN (21:02)
[2020-12-30 05:29] LABS: Basophils # 0.1 K/mcL (0.0-0.2); Basophils % 0.8 %; Eosinophils # 0.3 K/mcL (0.0-0.6); Hematocrit 39.8 % (35.3-44.9); Hemoglobin 12.8 g/dL (11.5-15.4); Immature Granulocytes % 0.2 % (0-4); Lymphocytes # 2.2 K/mcL (0.6-4.6); Lymphocytes % 34.7 %; Mean Corpuscular HGB Conc 32.2 g/dL (31.6-35.5); Mean Corpuscular Hemoglobin 29.1 pg (28.0-33.3); Mean Corpuscular Volume 90.5 fL (83.0-100.0); Mean Platelet Volume 9.9 fL (9.4-12.4); Monocytes # 0.4 K/mcL (0.0-1.3); Monocytes % 6.9 %; Neutrophils # 3.3 K/mcL (1.6-8.9); Platelet Count 166 K/mcL (140-400); Red Cell Distribution Width 13.9 % (11.5-14.5); Segmented Neutrophils % 53.4 %; White Blood Count 6.2 K/mcL (4.3-11.1)
[2020-12-30 06:16] LABS: BUN/Creatinine Ratio 15 (6-26); Blood Urea Nitrogen 13 mg/dL (6-20); Calcium 9.2 mg/dL (8.6-10.3); Carbon Dioxide 23 mEq/L (23-29); Chloride 100 mEq/L (98-107); Glucose 182 mg/dL (70-105); Osmolality,Calculated 281 (280-300); Phosphorous 3.5 mg/dL (2.7-4.5); Potassium 3.9 mEq/L (3.5-5.1); Sodium 133 mEq/L (136-145); eGFR For African Americans > 60 (> 60); eGFR For Non-African Americans > 60 (> 60)
[2020-12-30 07:31] VITALS: BP 116/76
[2020-12-30] MEDS: Aspirin Enteric Coated 81 MG Tablet PO SCH (08:18)
[2020-12-30] MEDS: *HR* Ticagrelor 90 MG TABLET PO SCH (08:19)
[2020-12-30] MEDS: amLODIPine 5 MG TABLET PO SCH (08:19)
[2020-12-30] MEDS: lisinopriL 5 MG TABLET PO SCH (08:20)
[2020-12-30] MEDS: Metoprolol XL (24 HR) Succ 50 MG TAB.ER.24H PO SCH (08:20)
[2020-12-30] MEDS: Insulin LISPRO 300 UNITS/3 ML VIAL SUBQ SCH ×2 (08:21→12:09)
[2020-12-30] MEDS ORDERED: Spironolactone 12.5 MG TABLET PO SCH (09:15)
== END 2020-12-30 14:26 | disposition home or self-care (01) | DRG 174 ==
LOC: 2NENU → SUATTDRO 22:32
PROVIDERS: ADMIT Internal Medicine; ATTEND Internal Medicine